=== PATIENT | male | born 1965 | race Caucasian/White ===

== ENCOUNTER 2016-12-16 11:33 | Emergency (ER) | payer BC ==
[~2016-12-16] VITALS: Ht 170.1 cm; Wt 64.4 kg
[~2016-12-16 11:33] MED LIST: 'zithromax250 MG PO; ALBUTEROL0.09 MG/A1 INH; ALLEGRA D 12 HO1 TER PO; ALLEGRA-D 12 HO1 TE1; ALLEGRA-D 60 MG1 TE1 PO; B12,B-12,B 12500 MC1 PO; BIAXIN500 MG PO; CLARITIN10 MG PO; FLEXERIL10 MG PO; LISINOPRIL10 M1 PO; NO DAILY MEDS; PEN-VEE K500 MG PO; PREDNICOT20 MG PO; PROVENTIL0.09 MG/A1 INH; PROVENTIL0.09 MG/AC IH; ROBITUSSIN AC 10 MG/ PO; ULTRAM50 MG PO; VOLTAREN75 MG PO; XANAX0.25 MG PO; ZITHROMAX Z PA250 MG PO; ZITHROMAX250 MG PO
[2016-12-16] MEDS ORDERED: CEPHALEXIN250 MG/5 M PO (11:53)
[2016-12-16] MEDS ORDERED: ZYRTEC10 MG PO (12:13)
[2016-12-16] MEDS ORDERED: ZITHROMAX250 MG PO (12:13)
== END 2016-12-16 14:13 | disposition home or self-care (01) ==
LOC: ED 11:33
DX: J01.90 Acute sinusitis, unspecified (principal); F17.200 Nicotine dependence, unspecified, uncomplicated; Z79.899 Other long term (current) drug therapy; Z98.890 Other specified postprocedural states; Z88.6 Allergy status to analgesic agent

== ENCOUNTER 2017-11-24 13:49 | Emergency (ER) | payer BC ==
[~2017-11-24] VITALS: Ht 172.7 cm; Wt 63.5 kg
[~2017-11-24 13:49] MED LIST changes: +CEPHALEXIN250 MG/5 M PO; +ZYRTEC10 MG PO
[2017-11-24] MEDS ORDERED: ZITHROMAX250 MG PO (14:31)
[2017-11-24] MEDS ORDERED: PROAIR HFA8.5 GM INH (14:31)
[2017-11-24] MEDS ORDERED: PREDNISONE10 MG PO (14:31)
[2017-11-24] MEDS ORDERED: NICOTINE PATCH1 EAC2 TD (14:31)
== END 2017-11-24 14:36 | disposition home or self-care (01) ==
LOC: ED 13:49
DX: J20.9 Acute bronchitis, unspecified (principal); J45.901 Unspecified asthma with (acute) exacerbation; F17.200 Nicotine dependence, unspecified, uncomplicated; Z88.6 Allergy status to analgesic agent

== ENCOUNTER 2017-12-01 08:09 | Emergency (ER) | payer BC ==
[~2017-12-01] VITALS: Ht 172.7 cm; Wt 63.5 kg
[~2017-12-01 08:09] MED LIST changes: +NICOTINE PATCH1 EAC2 TD; +PREDNISONE10 MG PO; +PROAIR HFA8.5 GM INH
[2017-12-01] MEDS ORDERED: NAPROSYN500 MG PO (08:20)
[2017-12-01] MEDS ORDERED: AMOXICILLIN500 M2 PO (08:20)
== END 2017-12-01 08:23 | disposition home or self-care (01) ==
LOC: ED 08:09
DX: K08.89 Other specified disorders of teeth and supporting structures (principal); I10 Essential (primary) hypertension; F17.200 Nicotine dependence, unspecified, uncomplicated; Z88.6 Allergy status to analgesic agent

== ENCOUNTER → 2018-04-16 | Outpatient (CLI) | payer BC ==
[~2018-04-16] MED LIST changes: +AMOXICILLIN500 M2 PO; +NAPROSYN500 MG PO
[2018-04-16 10:14] LABS: URINE AMPHETAMINES < 1000 (1000ng/ml); URINE BARBITURATES < 200 (200ng/ml); URINE BENZODIAZEPINES < 200 (200ng/ml); URINE CANNABINOIDS (THC) < 50 (50ng/ml); URINE COCAINE < 300 (300ng/ml); URINE METHADONE < 300 (300ng/ml); URINE OPIATES < 300 (300ng/ml)
[2018-04-16 10:16] LABS: URINE PHENCYCLIDINE < 25 (25ng/ml)
== END | disposition home or self-care (01) ==
LOC: LAB 09:34
PROVIDERS: Internal Medicine
DX: F11.20 Opioid dependence, uncomplicated (principal)

== ENCOUNTER 2018-07-22 21:10 | Emergency (ER) | payer BC ==
[~2018-07-22] VITALS: Ht 167.6 cm; Wt 63.5 kg
--- NOTE | ~2018-07-22 | EKG ---
[place], [place] ELECTROCARDIOGRAM REPORT NAME: WAN GALINDO UNIT #: [id number] ROOM: DOCTOR: EPIPHANY DRAFT REPORT BIRTHDATE: [birth year] [facility] Test Date: 2018-07-22 Test Time: 22:01:55 Pat Name: WAN GALINDO Department: Room: Gender: M Keycase Assembler: SS RESP : 1965 Requested By: VANDA FELIX Order Number: [id number] Reading MD: David Dyson MD Measurements Intervals [place] Rate: 102 P: 82 FL: 191 QRS: 67 QRSD: 80 T: 80 QT: 342 QTc: 446 Interpretive Statements Sinus tachycardia Possible biatrial enlargement RSR' in V1 or V2, probably normal variant Nonspecific T abnrm, anterolateral leads ST elev, probable normal early repol pattern Electronically Signed On 07-25-2018 14:25:57 PST by David Dyson MD CM:EKGRPT:ELECTROCARDIOGRAM REPORT 1425 VANDA RUSH DRAFT REPORT VANDA FELIX DO
[2018-07-22 22:11] LABS: BASO # 0.1 10*3/uL (0.0-0.1); BASO % 0.6 % (0.0-1.0); EOS # 0.1 10*3/uL (0.0-0.4); EOS % 0.7 % (1.0-4.0); HEMATOCRIT 43.1 % (42.0-52.0); HEMOGLOBIN 14.8 g/dl (14.0-18.0); LYMPH # 1.3 10*3/uL (1.3-4.4); LYMPH % 11.5 % (27.0-41.0); MEAN CELL VOLUME 85.7 fl (80.0-94.0); MEAN CORPUSCULAR HGB 29.4 pg (27.0-31.0); MEAN CORPUSCULAR HGB CONC 34.3 g/dl (33.0-37.0); MEAN PLATELET VOLUME 9.9 fl (9.6-12.3); MONO # 0.9 10*3/uL (0.1-1.0); NEUT # 8.9 10*3/uL (2.3-7.9); NEUT % 78.9 % (47.0-73.0); PLATELET COUNT AUTOMATED 204 10*3/uL (130-400); RED BLOOD COUNT 5.03 10*6/uL (4.50-5.90); RED CELL DISTRI WIDTH 12.1 % (0-14.5); WHITE BLOOD COUNT 11.2 10*3/uL (4.8-10.8)
[2018-07-22 22:27] LABS: ALBUMIN 3.6 gm/dl (3.1-4.5); ALKALINE PHOSPHATASE 84 U/L (45-117); BUN 7 mg/dl (7-24); CHLORIDE 104 mmol/L (98-107); CREATININE 0.77 mg/dL (0.70-1.30); POTASSIUM 4.2 mmol/L (3.5-5.1); SGOT/AST 10 IU/L (3-35); SGPT/ALT 14 U/L (12-78); SODIUM 138 mmol/L (136-145); TOTAL PROTEIN 7.8 gm/dL (6.4-8.2)
[2018-07-23] MEDS ORDERED: PRINIVIL10 MG PO (00:19)
[2018-07-23] MEDS ORDERED: TESSALON PERLE100 M1 PO (00:19)
[2018-07-23] MEDS ORDERED: ZITHROMAX250 MG PO (00:19)
[2018-07-23] MEDS ORDERED: PROVENTIL HFA6.7 GM INH (00:19)
== END 2018-07-23 00:21 | disposition home or self-care (01) ==
LOC: ED
PROVIDERS: Emergency Medicine
DX: I10 Essential (primary) hypertension (principal); J40 Bronchitis, not specified as acute or chronic; F17.200 Nicotine dependence, unspecified, uncomplicated; Z88.0 Allergy status to penicillin; Z88.8 Allergy status to other drugs, medicaments and biological substances; Z79.899 Other long term (current) drug therapy

== ENCOUNTER 2018-11-05 18:19 | Emergency (ER) | payer BC ==
[~2018-11-05] VITALS: Ht 167.6 cm; Wt 61.2 kg
[~2018-11-05 18:19] MED LIST changes: +PRINIVIL10 MG PO; +PROVENTIL HFA6.7 GM INH; +TESSALON PERLE100 M1 PO
== END 2018-11-05 19:36 | disposition home or self-care (01) ==
LOC: ED 18:19
DX: H61.22 Impacted cerumen, left ear (principal); F17.200 Nicotine dependence, unspecified, uncomplicated; Z88.0 Allergy status to penicillin; Z88.6 Allergy status to analgesic agent; Z79.2 Long term (current) use of antibiotics; Z79.899 Other long term (current) drug therapy

== ENCOUNTER → 2019-01-07 | Outpatient (CLI) | payer BC ==
[~2019-01-07] MED LIST changes: +CLINDAMYCIN HC300 MG PO; +TYLENOL325 M1 PO
[2019-01-07 11:51] LABS: URINE AMPHETAMINES < 1000 (1000ng/ml); URINE BARBITURATES < 200 (200ng/ml); URINE BENZODIAZEPINES < 200 (200ng/ml); URINE CANNABINOIDS (THC) < 50 (50ng/ml); URINE COCAINE < 300 (300ng/ml); URINE METHADONE < 300 (300ng/ml); URINE OPIATES < 300 (300ng/ml)
[2019-01-07 11:57] LABS: URINE PHENCYCLIDINE < 25 (25ng/ml)
== END | disposition home or self-care (01) ==
LOC: LAB 10:40
PROVIDERS: Internal Medicine
DX: F11.23 Opioid dependence with withdrawal (principal)

== ENCOUNTER 2019-03-20 15:54 | Emergency (ER) | payer BC ==
[~2019-03-20] VITALS: Ht 167.6 cm; Wt 59.0 kg
[~2019-03-20 15:54] MED LIST changes: -CLINDAMYCIN HC300 MG PO; -TYLENOL325 M1 PO
[2019-03-20] MEDS ORDERED: CLINDAMYCIN HC300 MG PO (16:03)
[2019-03-20] MEDS ORDERED: NAPROSYN500 MG PO (16:03)
[2019-03-20] MEDS ORDERED: TYLENOL325 M1 PO (16:03)
== END 2019-03-20 16:19 | disposition home or self-care (01) ==
LOC: ED 15:54
DX: K04.7 Periapical abscess without sinus (principal); K02.9 Dental caries, unspecified; I10 Essential (primary) hypertension; F17.200 Nicotine dependence, unspecified, uncomplicated; Z88.0 Allergy status to penicillin; Z88.6 Allergy status to analgesic agent

== ENCOUNTER → 2019-07-11 | Outpatient (CLI) | payer BC ==
[~2019-07-11] MED LIST changes: +CLINDAMYCIN HC300 MG PO; +TYLENOL325 M1 PO
[2019-07-11 08:25] LABS: URINE AMPHETAMINES < 1000 (1000ng/ml); URINE BARBITURATES < 200 (200ng/ml); URINE BENZODIAZEPINES < 200 (200ng/ml); URINE CANNABINOIDS (THC) < 50 (50ng/ml); URINE METHADONE < 300 (300ng/ml); URINE OPIATES < 300 (300ng/ml)
[2019-07-11 08:29] LABS: URINE COCAINE < 300 (300ng/ml)
[2019-07-11 08:31] LABS: URINE PHENCYCLIDINE < 25 (25ng/ml)
== END | disposition home or self-care (01) ==
LOC: LAB 07:29
PROVIDERS: Internal Medicine
DX: F11.20 Opioid dependence, uncomplicated (principal)

== ENCOUNTER 2019-09-13 08:50 | Emergency (ER) | payer BC ==
[~2019-09-13] VITALS: Ht 167.6 cm; Wt 59.0 kg
[2019-09-13] MEDS ORDERED: NAPROSYN500 MG PO (11:30)
== END 2019-09-13 11:34 | disposition home or self-care (01) ==
LOC: ED 08:50
DX: M25.512 Pain in left shoulder (principal); I10 Essential (primary) hypertension; F17.200 Nicotine dependence, unspecified, uncomplicated; Z88.0 Allergy status to penicillin; Z88.6 Allergy status to analgesic agent; X58.XXXA Exposure to other specified factors, initial encounter; Y93.89 Activity, other specified; Y92.89 Other specified places as the place of occurrence of the external cause; Y99.8 Other external cause status

== ENCOUNTER 2020-07-10 22:29 | Observation (INO) | payer OTHER ==
[~2020-07-10] VITALS: Ht 172.7 cm; Wt 49.2 kg
[2020-07-10 22:37] VITALS: BP 103/75
[2020-07-11] VITALS (11 sets, daily range): BP systolic 82–114; BP diastolic 50–82
[2020-07-11 00:54] LABS: BASO % 0.3 % (0.0-1.0); EOS % 0.1 % (1.0-4.0); HEMATOCRIT 42.1 % (42.0-52.0); LYMPH # 1.2 10*3/uL (1.3-4.4); LYMPH % 8.7 % (27.0-41.0); MEAN CELL VOLUME 86.8 fl (80.0-94.0); MEAN CORPUSCULAR HGB 28.5 pg (27.0-31.0); MEAN CORPUSCULAR HGB CONC 32.8 g/dl (33.0-37.0); MEAN PLATELET VOLUME 10.1 fl (9.6-12.3); MONO # 0.8 10*3/uL (0.1-1.0); MONO % 5.3 % (3.0-9.0); NEUT # 12.1 10*3/uL (2.3-7.9); NEUT % 85.3 % (47.0-73.0); PLATELET COUNT AUTOMATED 225 10*3/uL (130-400); RED BLOOD COUNT 4.85 10*6/uL (4.50-5.90); RED CELL DISTRI WIDTH 12.2 % (0-14.5); WHITE BLOOD COUNT 14.2 10*3/uL (4.8-10.8)
[2020-07-11 01:12] LABS: ALBUMIN 3.6 gm/dl (3.1-4.5); ALKALINE PHOSPHATASE 77 U/L (45-117); BUN 22 mg/dl (7-24); CHLORIDE 111 mmol/L (98-107); CREATININE 0.67 mg/dL (0.70-1.30); POTASSIUM 4.2 mmol/L (3.5-5.1); SGOT/AST 14 IU/L (3-35); SGPT/ALT 14 U/L (12-78); SODIUM 143 mmol/L (136-145); TOTAL PROTEIN 7.3 gm/dL (6.4-8.2)
[2020-07-11 01:13] LABS: ETHYL ALCOHOL < 3.0 mg/dl (<3); TROPONIN I < 0.015 ng/ml (<0.045)
[2020-07-11] MEDS ORDERED: ALLEGRA ALLERGY60 M2 PO (03:09)
[2020-07-11 06:08] LABS: BASO # 0.1 10*3/uL (0.0-0.1); BASO % 0.4 % (0.0-1.0); EOS % 0.3 % (1.0-4.0); HEMATOCRIT 39.2 % (42.0-52.0); LYMPH # 2.3 10*3/uL (1.3-4.4); LYMPH % 19.9 % (27.0-41.0); MEAN CELL VOLUME 87.1 fl (80.0-94.0); MEAN CORPUSCULAR HGB 28.4 pg (27.0-31.0); MEAN CORPUSCULAR HGB CONC 32.7 g/dl (33.0-37.0); MEAN PLATELET VOLUME 10.6 fl (9.6-12.3); MONO # 0.9 10*3/uL (0.1-1.0); MONO % 8.1 % (3.0-9.0); NEUT # 8.2 10*3/uL (2.3-7.9); PLATELET COUNT AUTOMATED 222 10*3/uL (130-400); RED CELL DISTRI WIDTH 12.2 % (0-14.5); WHITE BLOOD COUNT 11.5 10*3/uL (4.8-10.8)
[2020-07-11 06:20] LABS: BUN 19 mg/dl (7-24); CHLORIDE 111 mmol/L (98-107); CREATININE 0.61 mg/dL (0.70-1.30); SODIUM 144 mmol/L (136-145)
[2020-07-11 07:08] LABS: VITAMIN D, 25-HYDROXY 21.5 ng/mL (30-100)
[2020-07-11] MEDS ORDERED: CLARITIN10 MG PO (19:16)
[2020-07-11] MEDS ORDERED: PRINIVIL10 MG PO (19:16)
[2020-07-11 19:24] LABS: BILIRUBIN Negative (Negative); BLOOD Negative (Negative); CLARITY Clear (Clear); COLOR Yellow (Yellow); GLUCOSE 1+ (Negative); KETONE 3+ (Negative); LEUKO ESTERASE Negative (Negative); NITRITE Negative (Negative); PH 5.5 (4.5-8.0); SPECIFIC GRAVITY >= 1.030 (1.001-1.030); UROBILINOGEN 0.2 E.U./dl (0.0-1.0)
[2020-07-11 19:32] LABS: URINE AMPHETAMINES < 1000 (1000ng/ml); URINE BARBITURATES < 200 (200ng/ml); URINE BENZODIAZEPINES < 200 (200ng/ml); URINE CANNABINOIDS (THC) < 50 (50ng/ml); URINE COCAINE < 300 (300ng/ml); URINE METHADONE < 300 (300ng/ml); URINE OPIATES > 300 (300ng/ml)
[2020-07-11 19:33] LABS: URINE PHENCYCLIDINE < 25 (25ng/ml)
[2020-07-11 19:36] LABS: BACTERIA TRACE; MUCOUS TRACE; RBC 0-2 rbc/hpf (0-2); WBC 0-2 wbc/hpf (0-5)
[2020-07-12] VITALS: BP 98/61
[2020-07-12 04:00] VITALS: BP 102/42
[2020-07-12 06:10] LABS: BUN 17 mg/dl (7-24); CHLORIDE 115 mmol/L (98-107); CREATININE 0.58 mg/dL (0.70-1.30); SODIUM 145 mmol/L (136-145)
[2020-07-12 06:14] LABS: BASO # 0.1 10*3/uL (0.0-0.1); BASO % 0.6 % (0.0-1.0); EOS # 0.1 10*3/uL (0.0-0.4); EOS % 1.6 % (1.0-4.0); HEMATOCRIT 37.6 % (42.0-52.0); LYMPH % 36.2 % (27.0-41.0); MEAN CELL VOLUME 88.1 fl (80.0-94.0); MEAN CORPUSCULAR HGB 28.6 pg (27.0-31.0); MEAN CORPUSCULAR HGB CONC 32.4 g/dl (33.0-37.0); MEAN PLATELET VOLUME 10.6 fl (9.6-12.3); MONO # 0.8 10*3/uL (0.1-1.0); MONO % 9.5 % (3.0-9.0); NEUT # 4.3 10*3/uL (2.3-7.9); PLATELET COUNT AUTOMATED 195 10*3/uL (130-400); RED BLOOD COUNT 4.27 10*6/uL (4.50-5.90); RED CELL DISTRI WIDTH 12.2 % (0-14.5); WHITE BLOOD COUNT 8.2 10*3/uL (4.8-10.8)
[2020-07-12 08:00] VITALS: BP 111/77
[2020-07-12 12:00] VITALS: BP 100/64
[2020-07-12 16:00] VITALS: BP 100/52
[2020-07-12 20:00] VITALS: BP 99/68
[2020-07-13] VITALS: BP 101/62
[2020-07-13 04:00] VITALS: BP 92/56
[2020-07-13 05:50] LABS: BUN 12 mg/dl (7-24); CHLORIDE 113 mmol/L (98-107); CREATININE 0.61 mg/dL (0.70-1.30); SODIUM 146 mmol/L (136-145)
[2020-07-13 06:15] LABS: BASO # 0.1 10*3/uL (0.0-0.1); BASO % 1.1 % (0.0-1.0); EOS # 0.1 10*3/uL (0.0-0.4); EOS % 1.8 % (1.0-4.0); HEMATOCRIT 35.4 % (42.0-52.0); LYMPH # 2.8 10*3/uL (1.3-4.4); MEAN CELL VOLUME 87.4 fl (80.0-94.0); MEAN CORPUSCULAR HGB 27.9 pg (27.0-31.0); MEAN CORPUSCULAR HGB CONC 31.9 g/dl (33.0-37.0); MEAN PLATELET VOLUME 10.7 fl (9.6-12.3); MONO # 0.7 10*3/uL (0.1-1.0); MONO % 9.5 % (3.0-9.0); NEUT # 3.5 10*3/uL (2.3-7.9); NEUT % 48.5 % (47.0-73.0); PLATELET COUNT AUTOMATED 181 10*3/uL (130-400); RED BLOOD COUNT 4.05 10*6/uL (4.50-5.90); RED CELL DISTRI WIDTH 12.4 % (0-14.5); WHITE BLOOD COUNT 7.1 10*3/uL (4.8-10.8)
[2020-07-13 08:00] VITALS: BP 98/37
[2020-07-13] MEDS ORDERED: DULOXETINE HCL30 MG PO (11:05)
[2020-07-13] MEDS ORDERED: OLANZAPINE5 MG PO (11:05)
[2020-07-13] MEDS ORDERED: VITAMIN D350 MC2 PO (11:05)
[2020-07-13] MEDS ORDERED: RESTORIL15 MG PO (14:02)
[2020-07-13] MEDS ORDERED: PROTONIX40 MG PO (14:02)
[2020-07-13] MEDS ORDERED: ALBUTEROL2.5 MG/0.5 INH (14:03)
[2020-07-13] MEDS ORDERED: BUPRENEX IM (14:05)
[2020-07-13] MEDS ORDERED: ANTIBIOTIC28.4 GM T (14:06)
== END 2020-07-13 11:50 | disposition home health service (06) ==
LOC: ED 22:29 → ICCU 07-11 01:14 → EDHOLD 07-11 01:14 → 5E 07-11 02:07 → ICCU 07-11 17:12
PROVIDERS: Internal Medicine; Physician Assistant; Student in an Organized Health Care Education/Training Program; ADMIT Student in an Organized Health Care Education/Training Program; ATTEND Student in an Organized Health Care Education/Training Program
DX: J93.9 Pneumothorax, unspecified (principal); R65.10 Systemic inflammatory response syndrome (SIRS) of non-infectious origin without acute organ dysfunction; R00.0 Tachycardia, unspecified; D72.829 Elevated white blood cell count, unspecified; K02.9 Dental caries, unspecified; D72.810 Lymphocytopenia; I15.0 Renovascular hypertension; E53.8 Deficiency of other specified B group vitamins; E44.0 Moderate protein-calorie malnutrition; J44.9 Chronic obstructive pulmonary disease, unspecified; F31.9 Bipolar disorder, unspecified; F17.210 Nicotine dependence, cigarettes, uncomplicated

== ENCOUNTER 2020-07-13 12:07 | Inpatient (IN) | payer OTHER ==
[~2020-07-13 12:07] MED LIST changes: +ALLEGRA ALLERGY60 M2 PO; +DULOXETINE HCL30 MG PO; +OLANZAPINE5 MG PO; +VITAMIN D350 MC2 PO
--- NOTE | 2020-07-13 12:24 | NUR ---
WAN GALINDO a 54 year old M admitted via wheel chair from the ADMITTING as a voluntary admission. Arrived on unit at . ALLERGIES: PCN, IBUPROFEN. Vital signs are: [id number] 92/61. The client signed the following forms with stated understanding: Authorization For The Release of Medical Information, Clothing List, Consent to Voluntary Admission and Hospitalization, Consent and Release Forms/Receipt of Rights, Acknowledgement of Advance Directive Information, Behavioral Health Consent Form, and Informed Consent of Medications. Admitted under the services of Dr. CRISTINA SANTOSANTONIO. A search was conducted and hazardous articles were removed. Client was oriented to the unit. ANN CHRISTENSEN
[2020-07-13 14:00] VITALS: BP 92/61
[2020-07-13] MEDS ORDERED: RESTORIL15 MG PO (14:02)
[2020-07-13] MEDS ORDERED: PROTONIX40 MG PO (14:02)
[2020-07-13] MEDS ORDERED: ALBUTEROL2.5 MG/0.5 INH (14:03)
[2020-07-13] MEDS ORDERED: BUPRENEX IM (14:05)
[2020-07-13] MEDS ORDERED: ANTIBIOTIC28.4 GM T (14:06)
--- NOTE | 2020-07-13 15:44 | NUR ---
PM GROUP/MOVIE PT HAD JUST BEEN ADMITTED TO THE UNIT WHEN HE ENTERED THE DAYROOM SELF PROPELLING IN A WHEELCHAIR. I INTRODUCED MYSELF TO PT AND ASKED HIS NAME AND PT STATED, "I CAN'T TALK, IT HURTS TO BREATHE OR TALK" PT WAS LEFT TO WATCH THE MOVIE. AN ATTEMPT WILL BE MADE TOMORROW AM AT ASSESSMENT OF PT.
--- NOTE | 2020-07-13 16:02 | NUR ---
Attempted to Gather information from patient regarding follow up with PCP and Mental Health. Pt. states he is "Not speaking to anyone except his Energy Broker" states "I was told my insurance was not going to pay for me to be in the [facility] anymore and they were moving me to a floor which had more Room". Pt. states "I came to the Hospital for pain and Broken Ribs and trouble breathing" "This isn't right" Explained to Pt. that he was in the Psychiatric Unit and Pt. states "I have no Psych Problems so Why would I be here". Reassurance Provided and notified Pt. that I would speak with him at a later time to facilitate Discharge Plans. Notified Nurse of Pt. concerns for being on the Unit. Will Speak with Nurse Practitioner at Treatment Plan meeting. Pt. declined to talk further.
[2020-07-13 16:42] VITALS: BP 92/61
[2020-07-13 19:36] VITALS: BP 139/70
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
--- NOTE | 2020-07-14 05:35 | NUR ---
ON UNIT AT THIS TIME, UPDATE PROVIDED.
--- NOTE | 2020-07-14 05:47 | NUR ---
24 HOUR CHART CHECK COMPLETED.
[2020-07-14 06:18] LABS: BASO # 0.1 10*3/uL (0.0-0.1); BASO % 1.3 % (0.0-1.0); EOS # 0.2 10*3/uL (0.0-0.4); EOS % 2.7 % (1.0-4.0); HEMATOCRIT 36.6 % (42.0-52.0); LYMPH # 2.6 10*3/uL (1.3-4.4); LYMPH % 40.5 % (27.0-41.0); MEAN CORPUSCULAR HGB 29.3 pg (27.0-31.0); MEAN CORPUSCULAR HGB CONC 33.3 g/dl (33.0-37.0); MEAN PLATELET VOLUME 10.1 fl (9.6-12.3); MONO # 0.6 10*3/uL (0.1-1.0); MONO % 8.9 % (3.0-9.0); NEUT % 46.4 % (47.0-73.0); PLATELET COUNT AUTOMATED 192 10*3/uL (130-400); RED BLOOD COUNT 4.16 10*6/uL (4.50-5.90); RED CELL DISTRI WIDTH 12.6 % (0-14.5); WHITE BLOOD COUNT 6.4 10*3/uL (4.8-10.8)
--- NOTE | 2020-07-14 06:21 | NUR ---
PATIENT SLEPT APPROX 3.5 HOURS INTERRUPTED.
[2020-07-14 06:41] LABS: ALBUMIN 2.7 gm/dl (3.1-4.5); ALKALINE PHOSPHATASE 77 U/L (45-117); BUN 10 mg/dl (7-24); CHLORIDE 110 mmol/L (98-107); CHOLESTEROL 154 mg/dL (<200); CREATININE 0.56 mg/dL (0.70-1.30); HDL CHOLESTEROL 38 mg/dl (40-60); LDL CHOLESTEROL 79 mg/dL (9-159); SGOT/AST 11 IU/L (3-35); SGPT/ALT 12 U/L (12-78); SODIUM 144 mmol/L (136-145); TOTAL PROTEIN 5.8 gm/dL (6.4-8.2); TRIGLYCERIDES 187 mg/dl (<150); VLDL CHOLESTEROL 37 mg/dL (6-40)
[2020-07-14 08:00] VITALS: BP 122/66
[2020-07-14 08:19] LABS: VITAMIN D, 25-HYDROXY 16.8 ng/mL (30-100)
--- NOTE | 2020-07-14 08:32 | NUR ---
Pt resting quietly in bed. Awake, alert and verbal. rounded via telehealth, update given. New orders recieved to increase Cymbalta to 30mg BID and increase Zyprexa to 10mg at HS. Orders read back and verified. Med changes were discussed with pt by with pt's agreement.
--- NOTE | 2020-07-14 09:00 | NUR ---
Treatment Plan meeting was held this a.m. with SUMIT Dunn, RN, AT, LAURIE-S and Battery Filler in attendance. Plan for discharge Sunday or Early next week. Pt. will return home at discharge.
--- NOTE | 2020-07-14 09:10 | NUR ---
PATIENT COMPLAINING OF LEFT RIB AREA PAIN, HAVING SPASM, LIKE A SHOOTING PAIN, RATING 10/10. REQUESTING OF PAIN SHOT. PRN BUPRENORPHINE 0.3MG IM TO RIGHT DELTOID. WARM BLANKET PROVIDED FOR COMFORT.
--- NOTE | 2020-07-14 09:51 | NUR ---
ON UNIT TO SEE PT
--- NOTE | 2020-07-14 11:40 | NUR ---
AM GROUP PT WAS PRESENT FOR MORNING GROUP THERAPY SEATED IN A WHEELCHAIR EATING HIS BREAKFAST WITH HIS BACK TO ME. PT WAS NOTED TO BE TALKING TO SELF ON OCCASION, BUT WILL NOT ENGAGE IN CONVERSATION. PT LEFT DAYROOM WHEN FINISHED EATING.
--- NOTE | 2020-07-14 12:56 | NUR ---
Faxed admission clinical to [facility], awaiting response.
--- NOTE | 2020-07-14 14:41 | NUR ---
PT C/O PAIN TO LEFT SIDE. STATES PAIN MEDICATION GIVEN EARLIER IS WEARING OFF. ADVISED PT IT WAS NOT TIME FOR ANOTHER DOSE YET. PT STATES "OK. THE PAIN IS STARTING TO COME BACK THOUGH". PT WAS PROVIDED WITH WARM BLANKET. PT STATES "OH GOOD. THANK YOU GUYS. THAT HELPS". PT SITTING CALMLY EATING LATE LUNCH AT THIS TIME. WILL CONT TO MONITOR.
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
--- NOTE | 2020-07-14 14:58 | NUR ---
PT FINISHED EATING AND RETURNED TO ROOM. PT AMBULATED WITH WHEELED WALKER TO ROOM WITHOUT DIFFICULTY. PT STATES WARM BLANKET HAS HELPED PAIN. ADVISED PT TO ASK FOR ANOTHER BLANKET IF NEEDED. PT STATES "OK I WILL. THANKS".
--- NOTE | 2020-07-14 15:49 | NUR ---
PM GROUP PT WAS PRESENT FOR AFTERNOON GROUP THERAPY LONG ENOUGH TO EAT HIS LUNCH. PT THEN GOT UP AND LEFT THE DAYROOM. PT DID NOT RETURN.
--- NOTE | 2020-07-14 16:50 | NUR ---
Shift chart check completed.
[2020-07-14 19:31] VITALS: BP 136/74
--- NOTE | 2020-07-14 21:50 | NUR ---
P-ISOLATIVE I-PROVIDE 1:1 WITH THERAPEUTIC INTERVENTIONS. ENCOURAGE MEDICATION COMPLIANCE AND EDUCATE. MONITOR SLEEP. R-PATIENT ALERT AND ORIENTED X4. PT WITH A BRIGHTER AFFECT THIS HS, STATED THAT HE HAD A BETTER DAY TODAY BUT IS STILL HAVING PAIN IN HIS LEFT SIDE/RIB AREA, THATS WHY HE WAS LAYING IN BED INSTEAD OF OUT WATCHING TV. PT RECEIVED PRN BUPRENEX 0.3MG IM REQUESTED FOR C/O PAIN WITH A RATING OF 10/10 AT 2027, TOLERATED INJECTION WELL. NO FURTHER COMPLAINTS NOTED SINCE ADMINISTRATION, PRN EFFECTIVE AT THIS TIME. PT MEDICATION COMPLIANT WITH HS MED PASS WITHOUT DIFFICULTY AFTER REVIEW. PT OTHERWISE IS ISOLATIVE TO SELF, CALM, GUARDED. NO NOTED PARANOIA, DELUSIONS, OR HALLUCINATIONS NOTED. CONTINUES TO REFUSED HS SKIN ASSESSMENT. PT AMBULATORY WITH A STEADY GAIT USING A WHEELED WALKER. INDEPENDENT IN ADLS, CONTINENT OF BOWEL AND BLADDER. NO DISTRESS NOTED. P-CONTINUE TO MONITOR MOOD AND BEHAVIORS. MAINTAIN Q 15 MIN CHECKS AND PRN FOR SAFETY.
--- NOTE | 2020-07-15 05:11 | NUR ---
24 HOUR CHART CHECK COMPLETED.
[2020-07-15 07:40] VITALS: BP 120/60
--- NOTE | 2020-07-15 09:00 | NUR ---
Treatment Plan meeting was held this a.m. with Dr. Roblero, RN, AT and Alteration Hand in attendance. Plan for discharge Sunday with possible Sunday discharge depending on Pt. symptoms. Will Follow.
--- NOTE | 2020-07-15 09:52 | NUR ---
DR. YADAV ON UNIT TO ASSESS PATIENT.
--- NOTE | 2020-07-15 10:30 | NUR ---
PATIENT RECIEVED VITAMIN B12 1000MCG IN RIGHT DELTOID AND TOLERATED WELL.
--- NOTE | 2020-07-15 11:40 | NUR ---
AM GROUP PT DID NOT ATTEND MORNING GROUP THERAPY. PT WAS IN BED RESTING.
--- NOTE | 2020-07-15 14:13 | NUR ---
P: PT ISOALTIVE TO ROOM THROUGHOUT THE DAY, REFUSING TO PARTICIPATE IN GROUP/ACTIVITIES, ONLY COMING OUT FOR MEALS. I: PROVIDE EMOTIONAL SUPPORT AND 1:1 FOR PT TO VOICE FEELINGS, ENCOURAGE GROUP PARTICIPATION AND SOCIALIZATION, ENCOURAGE PO INTAKE R: PT ALERT TO PERSON, PLACE, TIME AND SITUATION. PT MED COMPLIANT WITHOUT DIFFICULTY, MED EDUCATION PROVIDED. PT CALM, MOOD IS STABLE. PT CONTINUES TO ISOLATE TO HIS ROOM, COMING OUT FOR MEALS. PT DENIES ANY SUICIDAL OR HOMICIDAL THOUGHTS, VERBALLY CONTRACTS FOR SAFETY IF SUCH THOUGHTS ARISE. NO HALLUCINATIONS OR DELUSIONS NOTED. PT AMBULATORY WITH WHEELEED WALKER, GAIT STEADY. PT CONTINENT OF BOWEL AND BLADDER. PT CONTINUES TO REFUSE SKIN ASSESSMENT. P: MONITOR PT BEHAVIORS ON Q15 MIN SAFETY CHECKS, ENCOURAGE MED COMPLIANCE AND PROVIDE MED EDUCATION, ENCOURAGE GROUP PARTICIPATION AND SOCIALIZATION, PROVIDE EMOTIONAL SUPPORT AND 1:1 FOR PT TO VOICE FEELINGS.
--- NOTE | 2020-07-15 15:44 | NUR ---
PM GROUP PT DID NOT ATTEND AFTERNOON GROUP THERAPY. PT STAYED IN HIS ROOM RESTING.
[2020-07-15 19:04] VITALS: BP 131/72
--- NOTE | 2020-07-15 19:30 | NUR ---
Patient c/o rib pain rating 10/10. Medicated with Buprenex IM prn for pain. Will monitor effectiveness.
--- NOTE | 2020-07-15 20:15 | NUR ---
Patient resting quietly in bed. Buprenex effective.
--- NOTE | 2020-07-15 20:25 | NUR ---
Patient alert and oriented to person,place,situation and time. Mood is calm and cooperative. Denies any SI/HI or any hallucinations. No s/s of any responding to internal stimuli. Patient isolative to self even when in dining room with other patients. Patient c/o any rib pain earlier and was medicated with Buprenex. Patient currently resting comfortably in bed at this time. Patient compliant with HS medications without any difficulty. Provided therapeutic communication and encouraged patient to be more interactive with other patients. Plan to continue to encourage medication compliance. Also continue to encourage patient to more interactive with staff and other patients. Will continue to monitor moods/behaviors. Q 15 minute safety checks continued and maintained. See [facility] flowsheet for further documentation.
--- NOTE | 2020-07-16 00:54 | NUR ---
24 HR chart check completed.
--- NOTE | 2020-07-16 05:26 | NUR ---
Patient slept approx. 8 hours throughout shift. Q 15 minute safety checks continued and maintained.
--- NOTE | 2020-07-16 06:02 | NUR ---
Patient refuses skin assessment at this time.
--- NOTE | 2020-07-16 07:07 | NUR ---
Faxed continued review stay clinical to [facility]. Awaiting response.
[2020-07-16 07:25] VITALS: BP 125/62
[2020-07-16] MEDS ORDERED: VITAMIN D350 MC2 PO (08:03)
[2020-07-16] MEDS ORDERED: DULOXETINE HCL60 MG PO (08:03)
[2020-07-16] MEDS ORDERED: OLANZAPINE5 MG PO (08:03)
[2020-07-16] MEDS ORDERED: DULOXETINE HCL30 MG PO (08:03)
--- NOTE | 2020-07-16 08:03 | NUR ---
SPOKE WITH DR REILLY AT [phone] RE: PT DC FOR TODAY AND MEDICAL MEDS NEED COMPLETED. NO FURTHER ORDERS AT THIS TIME.
--- NOTE | 2020-07-16 09:00 | NUR ---
Treatment Plan meeting was held this a.m. with SUMIT Dunn, RN, AT, SUPERVISOR COAL HANDLING-S and Internal Medicine Doctor in attendance. Plan for discharge today. Pt. will discharge directly to [facility] for his follow up appointments with Mental Health and Substance Abuse. Transportation arranged with [facility] to transport.
--- NOTE | 2020-07-16 09:49 | NUR ---
DR. YADAV ON UNIT TO ASSESS PT BEFORE DISCHARGE.
--- NOTE | 2020-07-16 10:00 | NUR ---
PT ALERT AND ORIENTED TO PERSON, PLACE, TIME, AND SITUATION. DENIES DEPRESSION, HALLUCINATIONS, DELUSIONS AND/ OR PARANOIA. PT RESTING IN ROOM AT THIS TIME. PT REFUSES SKIN ASSESSMENT.
--- NOTE | 2020-07-16 10:25 | NUR ---
SPOKE WITH DR REILLY AT [phone], RE: PT DC AND TRANSPORT CHANGE AND PTS RIDE WILL BE HERE AT ANY TIME AND MEDICAL MEDS NEED COMPLETED.
--- NOTE | 2020-07-16 11:51 | NUR ---
AM GROUP PT ATTENDED AFTERNOON GROUP THERAPY AND SAT QUIETLY AND WATCHED THE MOVIE. PT IS SET TO BE DISCHARGED FROM THE UNIT THIS AFTERNOON.
--- NOTE | 2020-07-16 12:05 | NUR ---
PT DISCHARGED VIA [facility]. ALL BELONGINGS AND DISCHARGE PAPERWORK SENT WITH PT.
--- NOTE | 2020-07-16 12:36 | NUR ---
Patient discharged to home today. Pt went directly from [facility] to his follow-up appointments at [facility] with Claudia ARANA and pt's counselor. While at [facility], pt chose to isolate. He was pleasant with limited interaction with this senior copywriter.
--- NOTE | 2020-07-16 13:10 | NUR ---
Discharge Paperwork faxed to [facility] and [facility].
--- NOTE | 2020-07-19 11:36 | NUR ---
IP 4 days tamara per AMBERLY Benites 07/16, ref # [id number]. Faxed discharge instructions and summary.
== END 2020-07-16 12:05 | disposition home or self-care (01) | DRG 751 ==
LOC: 3N 12:07
PROVIDERS: ADMIT Psychiatry & Neurology Psychiatry; ATTEND Psychiatry & Neurology Psychiatry
DX: F33.3 Major depressive disorder, recurrent, severe with psychotic symptoms (principal); F17.210 Nicotine dependence, cigarettes, uncomplicated; K02.9 Dental caries, unspecified; J44.9 Chronic obstructive pulmonary disease, unspecified; E53.8 Deficiency of other specified B group vitamins; I15.0 Renovascular hypertension; Z20.828 Contact with and (suspected) exposure to other viral communicable diseases; D64.9 Anemia, unspecified; Z87.09 Personal history of other diseases of the respiratory system; Z88.0 Allergy status to penicillin; Z88.6 Allergy status to analgesic agent

== ENCOUNTER 2020-07-16 15:33 | Emergency (ER) | payer OTHER ==
[~2020-07-16] VITALS: Wt 65.8 kg
[~2020-07-16 15:33] MED LIST changes: +ALBUTEROL2.5 MG/0.5 INH; +ANTIBIOTIC28.4 GM T; +BUPRENEX IM; +DULOXETINE HCL60 MG PO; +PROTONIX40 MG PO; +RESTORIL15 MG PO
== END 2020-07-16 17:24 | disposition home or self-care (01) ==
LOC: ED 15:33
DX: S20.20XA Contusion of thorax, unspecified, initial encounter (principal); J44.9 Chronic obstructive pulmonary disease, unspecified; F17.200 Nicotine dependence, unspecified, uncomplicated; Z88.0 Allergy status to penicillin; Z88.8 Allergy status to other drugs, medicaments and biological substances; Z79.899 Other long term (current) drug therapy; Z79.2 Long term (current) use of antibiotics; X58.XXXA Exposure to other specified factors, initial encounter; Y93.89 Activity, other specified; Y92.89 Other specified places as the place of occurrence of the external cause; Y99.8 Other external cause status

== ENCOUNTER 2020-07-17 02:05 | Emergency (ER) | payer OTHER ==
[~2020-07-17] VITALS: Wt 65.8 kg
== END 2020-07-17 03:44 | disposition home or self-care (01) ==
LOC: ED 02:05
DX: S22.42XA Multiple fractures of ribs, left side, initial encounter for closed fracture (principal); Z88.0 Allergy status to penicillin; Z88.8 Allergy status to other drugs, medicaments and biological substances; Z79.899 Other long term (current) drug therapy; X58.XXXA Exposure to other specified factors, initial encounter; Y93.89 Activity, other specified; Y92.89 Other specified places as the place of occurrence of the external cause; Y99.8 Other external cause status

== ENCOUNTER 2021-03-28 20:19 | Emergency (ER) | payer OTHER ==
[~2021-03-28] VITALS: Ht 172.7 cm; Wt 73.5 kg
== END 2021-03-28 21:47 | disposition home or self-care (01) ==
LOC: ED 20:19
DX: K04.7 Periapical abscess without sinus (principal); F17.200 Nicotine dependence, unspecified, uncomplicated; Z79.899 Other long term (current) drug therapy; Z88.0 Allergy status to penicillin; Z88.6 Allergy status to analgesic agent

== ENCOUNTER → 2021-11-02 | Outpatient (CLI) | payer OTHER | END | disposition home or self-care (01) | LOC: CARD 07:30 | PROVIDERS: ATTEND Physician Assistant | DX: R01.1 Cardiac murmur, unspecified (principal); E78.00 Pure hypercholesterolemia, unspecified; F17.210 Nicotine dependence, cigarettes, uncomplicated; R09.89 Other specified symptoms and signs involving the circulatory and respiratory systems ==

== ENCOUNTER → 2022-09-04 | Outpatient (CLI) | payer OTHER | END | disposition home or self-care (01) | LOC: US 09-01 08:30 | PROVIDERS: ATTEND Physician Assistant | DX: I65.23 Occlusion and stenosis of bilateral carotid arteries (principal); R01.1 Cardiac murmur, unspecified; R09.89 Other specified symptoms and signs involving the circulatory and respiratory systems; F17.210 Nicotine dependence, cigarettes, uncomplicated; I10 Essential (primary) hypertension ==

== ENCOUNTER 2022-12-26 08:12 | Emergency (ER) | payer OTHER ==
[~2022-12-26] VITALS: Ht 172.7 cm; Wt 68.0 kg
[2022-12-26] MEDS ORDERED: NAPROXEN500 M1 PO (09:39)
== END 2022-12-26 09:41 | disposition home or self-care (01) ==
LOC: ED 08:12
DX: S70.02XA Contusion of left hip, initial encounter (principal); S20.212A Contusion of left front wall of thorax, initial encounter; S40.011A Contusion of right shoulder, initial encounter; J44.9 Chronic obstructive pulmonary disease, unspecified; Z88.0 Allergy status to penicillin; Z88.6 Allergy status to analgesic agent; Z98.890 Other specified postprocedural states; Z87.891 Personal history of nicotine dependence; W19.XXXA Unspecified fall, initial encounter; Y93.89 Activity, other specified; Y92.89 Other specified places as the place of occurrence of the external cause; Y99.8 Other external cause status

== ENCOUNTER 2023-06-25 15:11 | Emergency (ER) | payer OTHER ==
[~2023-06-25] VITALS: Ht 172.7 cm; Wt 72.6 kg
[~2023-06-25 15:11] MED LIST changes: +NAPROXEN500 M1 PO
[2023-06-25] MEDS ORDERED: BUPRENORPHINE-1 EAC1 SL (15:19)
[2023-06-25] MEDS ORDERED: GOOD NEIGHBOR L10 MG PO (15:19)
[2023-06-25] MEDS ORDERED: TRAMADOL HCL50 MG PO (15:33)
[2023-06-25] MEDS ORDERED: TYLENOL EXTRA500 MG PO (15:59)
== END 2023-06-25 16:00 | disposition home or self-care (01) ==
LOC: ED 15:11
DX: S63.631A Sprain of interphalangeal joint of left index finger, initial encounter (principal); J44.9 Chronic obstructive pulmonary disease, unspecified; F31.9 Bipolar disorder, unspecified; Z88.0 Allergy status to penicillin; Z88.6 Allergy status to analgesic agent; Z98.890 Other specified postprocedural states; F17.290 Nicotine dependence, other tobacco product, uncomplicated; W01.190A Fall on same level from slipping, tripping and stumbling with subsequent striking against furniture, initial encounter; Y93.89 Activity, other specified; Y92.89 Other specified places as the place of occurrence of the external cause; Y99.8 Other external cause status